=== PATIENT | female | born 1960 | race Native Hawaiian/Other Pacific Islander ===

== ENCOUNTER 2018-01-24 15:11 | Emergency (ER) | payer OTHER ==
[~2018-01-24] VITALS: Ht 177.8 cm; Wt 108.9 kg
[~2018-01-24 15:11] MED LIST: LEVO0.1224 PO; LISI10TA11 PO; SYNTHROID125 MCG PO
[2018-01-24 15:15] VITALS: TEMP 98.1
[2018-01-24 15:44] LABS: POTASSIUM 3.9 mmol/L (3.6-5.2); SODIUM 142 mmol/L (136-145)
[2018-01-24 16:01] LABS: PLATELET COUNT 179 K/uL (152-353)
[2018-01-24 18:48] VITALS: BP 110/66
== END 2018-01-24 20:10 | disposition still patient (30) ==
LOC: ED 15:11
PROVIDERS: Emergency Medicine
DX: R07.89 Other chest pain (principal); R00.1 Bradycardia, unspecified
CPT/HCPCS: 36415; 80053; 82550; 82553; 84484; 85027; 85379; 93005; 96374; 99284; J2270; Q9963

== ENCOUNTER 2018-05-22 09:08 | Outpatient (CLI) | payer OTHER | END 2018-05-22 19:13 | disposition home or self-care (01) | LOC: MAMMO 09:08 | DX: Z12.31 Encounter for screening mammogram for malignant neoplasm of breast (principal) ==

== ENCOUNTER 2018-06-08 09:56 | Outpatient (CLI) | payer OTHER | END 2018-06-08 22:22 | disposition home or self-care (01) | LOC: MAMMO 09:56 | DX: R92.8 Other abnormal and inconclusive findings on diagnostic imaging of breast (principal) ==

== ENCOUNTER 2018-09-11 15:40 | Outpatient (CLI) | payer OTHER | END 2018-09-11 19:24 | disposition home or self-care (01) | LOC: RAD 15:40 | DX: M54.5 Low back pain (principal); M25.552 Pain in left hip ==

== ENCOUNTER 2018-10-16 12:38 | Outpatient (CLI) | payer OTHER ==
[2018-10-16 13:15] LABS: PLATELET COUNT 188 K/uL (152-353)
== END 2018-10-16 20:02 | disposition home or self-care (01) ==
LOC: LABW 12:38
PROVIDERS: Internal Medicine Cardiovascular Disease
DX: Z79.899 Other long term (current) drug therapy (principal)
CPT/HCPCS: 36415; 80061; 85027; 85651

== ENCOUNTER 2018-10-17 11:28 | Day surgery (SDC) | payer OTHER ==
[2018-10-17 12:33] LABS: PLATELET COUNT 201 K/uL (152-353)
== END 2018-10-17 14:45 | disposition home or self-care (01) ==
LOC: OR 11:28 → EDSTATUS 13:00 → OR 14:45
PROVIDERS: Internal Medicine Gastroenterology
PROC: 0DB68ZZ Excision of Stomach, Via Natural or Artificial Opening Endoscopic (ICD-10-PCS; principal; 2018-10-17)
PROC: 0D738ZZ Dilation of Lower Esophagus, Via Natural or Artificial Opening Endoscopic (ICD-10-PCS; 2018-10-17)
DX: K21.0 Gastro-esophageal reflux disease with esophagitis (principal); K22.4 Dyskinesia of esophagus; K22.2 Esophageal obstruction; K25.9 Gastric ulcer, unspecified as acute or chronic, without hemorrhage or perforation; K29.50 Unspecified chronic gastritis without bleeding; R10.13 Epigastric pain; R13.19 Other dysphagia
CPT/HCPCS: 80053; 85027; J2001; J2704

== ENCOUNTER 2018-10-31 11:25 | Day surgery (SDC) | payer OTHER | END 2018-10-31 15:00 | disposition home or self-care (01) | LOC: OR 11:25 | PROC: 0DJD8ZZ Inspection of Lower Intestinal Tract, Via Natural or Artificial Opening Endoscopic (ICD-10-PCS; principal; 2018-10-31) | DX: K57.30 Diverticulosis of large intestine without perforation or abscess without bleeding (principal); K64.8 Other hemorrhoids; Z80.0 Family history of malignant neoplasm of digestive organs; Z12.11 Encounter for screening for malignant neoplasm of colon | CPT/HCPCS: J2001; J2250; J2704 ==

== ENCOUNTER 2018-11-05 20:08 | Observation (INO) | payer OTHER ==
[~2018-11-05] VITALS: Ht 177.8 cm; Wt 121.1 kg
[2018-11-05 20:36] VITALS: BP 130/73; TEMP 98.7
[2018-11-05 20:56] LABS: PLATELET COUNT 177 K/uL (152-353)
[2018-11-05 21:06] LABS: POTASSIUM 3.7 mmol/L (3.6-5.2); SODIUM 142 mmol/L (136-145)
[2018-11-05 21:11] LABS: PARTIAL THROMBOPLASTIN TIME 25.2 SECONDS (24.5-33.6)
[2018-11-05 23:24] VITALS: BP 137/77; TEMP 97.6; Ht 177.8 cm; Wt 121.1 kg
[2018-11-05] MEDS ORDERED: CYCL10TA35 PO (23:48)
[2018-11-05] MEDS ORDERED: GABA300C2 PO (23:49)
[2018-11-05] MEDS ORDERED: DOXE25CA18 PO (23:50)
[2018-11-05] MEDS ORDERED: TEMA15CA19 PO (23:51)
[2018-11-05] MEDS ORDERED: METO-837 PO (23:53)
[2018-11-05] MEDS ORDERED: DONEPEZIL HYDROC5 M1 PO (23:55)
[2018-11-05] MEDS ORDERED: PANTPAK PO (23:56)
[2018-11-05] MEDS ORDERED: ROPINIROLE2 M1 PO (23:56)
[2018-11-05] MEDS ORDERED: LIPITOR40 MG PO (23:58)
[2018-11-06] VITALS: BP 137/77; TEMP 97.6
[2018-11-06] MEDS ORDERED: LEVO-T150 MCG PO (00:01)
[2018-11-06] MEDS ORDERED: CITALOPRAM20 MG PO (00:02)
[2018-11-06] MEDS ORDERED: ASA LOW DOSE81 MG PO (00:03)
[2018-11-06 04:00] VITALS: BP 108/57; TEMP 97.4
[2018-11-06 08:00] VITALS: BP 121/58; TEMP 97.7
[2018-11-06 12:00] VITALS: BP 116/65; TEMP 97.3
--- NOTE | 2018-11-06 16:37 | NUR ---
PT DISCHARGED TO HOME, IV D/C'D TIP INTACT, NO REDNESS OR EDEMA NOTED, DISCHARGE PAPERWORK EXPLAINED TO PATIENT, PATIENT STATED UNDERSTANDING, DR ALCANTARA IN PT ROOM TO EXPLAIN REASON FOR DISCHARGE.
--- NOTE | 2018-11-06 17:24 | NUR ---
PT DISCHARGED TO HOME, TAKEN TO PRIVATE CAR BY WHEELCHAIR, ACCOMPANIED BY PCT, NAD NOTED, NO C/O VOICED
== END 2018-11-06 17:25 | disposition home or self-care (01) ==
LOC: ED 20:08 → MED/SURG 21:19
PROVIDERS: Student in an Organized Health Care Education/Training Program; ADMIT Internal Medicine
DX: R07.89 Other chest pain (principal); I10 Essential (primary) hypertension; I25.10 Atherosclerotic heart disease of native coronary artery without angina pectoris; K21.9 Gastro-esophageal reflux disease without esophagitis; F41.8 Other specified anxiety disorders; G25.81 Restless legs syndrome; F03.90 Unspecified dementia, unspecified severity, without behavioral disturbance, psychotic disturbance, mood disturbance, and anxiety; G89.4 Chronic pain syndrome
CPT/HCPCS: 36415; 80048; 82550; 83735; 83880; 84484; 85027; 85610; 85730; 93005; 96374; 99220; 99284; G0378; J2270

== ENCOUNTER 2019-02-12 12:49 | Outpatient (CLI) | payer OTHER ==
[~2019-02-12 12:49] MED LIST changes: +ASA LOW DOSE81 MG PO; +CITALOPRAM20 MG PO; +CYCL10TA35 PO; +DONEPEZIL HYDROC5 M1 PO; +DOXE25CA18 PO; +GABA300C2 PO; +LEVO-T150 MCG PO; +LIPITOR40 MG PO; +METO-837 PO; +PANTPAK PO; +ROPINIROLE2 M1 PO; +TEMA15CA19 PO
== END 2019-02-12 19:01 | disposition home or self-care (01) ==
LOC: MAMMO 12:49
DX: R92.8 Other abnormal and inconclusive findings on diagnostic imaging of breast (principal)

== ENCOUNTER 2020-08-18 09:05 | Outpatient (CLI) | payer OTHER | END 2020-08-18 21:57 | disposition home or self-care (01) | LOC: RAD 09:05 | PROVIDERS: ATTEND Nurse Practitioner Family | DX: M25.532 Pain in left wrist (principal) ==

== ENCOUNTER 2021-02-02 08:21 | Outpatient (CLI) | payer OTHER ==
[2021-02-02 09:38] LABS: POTASSIUM 3.7 mmol/L (3.6-5.2)
== END 2021-02-02 20:02 | disposition home or self-care (01) ==
LOC: LABW 08:21
PROVIDERS: ATTEND Internal Medicine Cardiovascular Disease
DX: Z79.899 Other long term (current) drug therapy (principal); R06.09 Other forms of dyspnea
CPT/HCPCS: 36415; 80048; 83880

== ENCOUNTER 2021-04-15 08:49 | Outpatient (CLI) | payer OTHER | END 2021-04-15 19:13 | disposition home or self-care (01) | LOC: MAMMO 08:49 | PROVIDERS: ATTEND Nurse Practitioner | DX: Z12.31 Encounter for screening mammogram for malignant neoplasm of breast (principal) ==

== ENCOUNTER 2021-11-24 10:17 | Outpatient (CLI) | payer OTHER ==
[2021-11-24 10:38] LABS: PLATELET COUNT 128 K/uL (152-353)
[2021-11-24 11:26] LABS: POTASSIUM 4.2 mmol/L (3.6-5.2)
== END 2021-11-24 20:00 | disposition home or self-care (01) ==
LOC: LABW 10:17
PROVIDERS: ATTEND Physician Assistant
DX: Z79.899 Other long term (current) drug therapy (principal); R60.0 Localized edema; R06.09 Other forms of dyspnea; G25.81 Restless legs syndrome; R79.89 Other specified abnormal findings of blood chemistry
CPT/HCPCS: 36415; 80048; 82728; 83540; 83550; 83880; 85027

== ENCOUNTER 2021-12-26 15:16 | Emergency (ER) | payer OTHER ==
[~2021-12-26] VITALS: Ht 177.8 cm; Wt 131.1 kg
[2021-12-26 17:03] VITALS: BP 136/51; TEMP 97.9
== END 2021-12-26 17:03 | disposition home or self-care (01) ==
LOC: ED 15:16
DX: R04.0 Epistaxis (principal)
CPT/HCPCS: 99283

== ENCOUNTER 2022-05-25 10:47 | Day surgery (SDC) | payer OTHER ==
[~2022-05-25] VITALS: Ht 165.1 cm; Wt 79.4 kg
== END 2022-05-25 14:50 | disposition home or self-care (01) ==
LOC: OR 10:47
PROVIDERS: ATTEND Internal Medicine Gastroenterology
PROC: 0DBL8ZZ Excision of Transverse Colon, Via Natural or Artificial Opening Endoscopic (ICD-10-PCS; principal; 2022-05-25)
DX: D12.3 Benign neoplasm of transverse colon (principal); K57.30 Diverticulosis of large intestine without perforation or abscess without bleeding; K64.8 Other hemorrhoids; Z80.0 Family history of malignant neoplasm of digestive organs; R63.4 Abnormal weight loss; Z12.11 Encounter for screening for malignant neoplasm of colon
CPT/HCPCS: J2704; J7120

== ENCOUNTER 2022-08-15 10:20 | Outpatient (CLI) | payer OTHER | END 2022-08-15 19:00 | disposition home or self-care (01) | LOC: MAMMO 10:20 | PROVIDERS: ATTEND Internal Medicine Endocrinology, Diabetes & Metabolism | DX: Z12.31 Encounter for screening mammogram for malignant neoplasm of breast (principal) ==

== ENCOUNTER 2022-08-31 16:47 | Observation (INO) | payer OTHER ==
[~2022-08-31] VITALS: Ht 177.8 cm; Wt 127.0 kg
[~2022-08-31 16:47] MED LIST changes: -LEVO-T150 MCG PO; +LEVO-T175 MCG PO
[2022-08-31 16:50] VITALS: BP 128/54; TEMP 98.9
[2022-08-31 18:20] LABS: PLATELET COUNT 129 K/uL (152-353)
[2022-08-31 18:51] LABS: PARTIAL THROMBOPLASTIN TIME 33.4 SECONDS (23.9-36.7)
[2022-08-31 23:31] VITALS: BP 135/38; TEMP 98.2; Ht 177.8 cm; Wt 127.0 kg
[2022-09-01 00:50] VITALS: BP 97/50; TEMP 98.5
[2022-09-01 04:50] VITALS: BP 119/60; TEMP 98.6
[2022-09-01 05:11] LABS: PLATELET COUNT 115 K/uL (152-353)
[2022-09-01 08:50] VITALS: BP 131/66; TEMP 97.4
[2022-09-01] MEDS ORDERED: FERROUS SULF325 MG PO (12:40)
[2022-09-01] MEDS ORDERED: TRAMADOL HYDROC50 MG PO (12:41)
[2022-09-01] MEDS ORDERED: CLOP75TA2 PO (12:43)
[2022-09-01] MEDS ORDERED: BUME1TAB19 PO (12:44)
[2022-09-01] MEDS ORDERED: PREVACID30 MG PO (12:44)
[2022-09-01] MEDS ORDERED: TRAZODONE HYDR150 MG PO (12:46)
[2022-09-01] MEDS ORDERED: TRICOR145 M1 PO (12:48)
[2022-09-01] MEDS ORDERED: FLUOXETINE40 MG PO (12:48)
[2022-09-01 12:50] VITALS: BP 127/57; TEMP 98.7
[2022-09-01] MEDS ORDERED: ZINC PO (12:50)
[2022-09-01] MEDS ORDERED: CETI10TA PO (12:50)
[2022-09-01] MEDS ORDERED: ASCO500T18 PO (12:51)
[2022-09-01] MEDS ORDERED: VITAMIN D2000 UNI2 PO (12:52)
[2022-09-01] MEDS ORDERED: NITR0.4S2 SL (12:52)
[2022-09-01 16:55] VITALS: BP 128/65; TEMP 98.3
[2022-09-01 20:44] VITALS: BP 120/61; TEMP 98.4
[2022-09-02 00:27] VITALS: BP 114/61; TEMP 98.4
[2022-09-02 04:50] VITALS: BP 109/61; TEMP 98.8
[2022-09-02 08:50] VITALS: BP 119/59; TEMP 98.3
[2022-09-02] MEDS ORDERED: CIPR500T PO (11:15)
== END 2022-09-02 12:05 | disposition home health service (06) ==
LOC: ED 16:47 → MED/SURG 19:05
PROVIDERS: ADMIT Emergency Medicine; ATTEND Internal Medicine
DX: I63.9 Cerebral infarction, unspecified (principal); R53.1 Weakness; I10 Essential (primary) hypertension; N39.0 Urinary tract infection, site not specified; E11.65 Type 2 diabetes mellitus with hyperglycemia
CPT/HCPCS: 80053; 80061; 81000; 84484; 85027; 85610; 85730; 87086; 87088; 93005; 96360; 96361; 99221; 99283; G0378; J1650